=== PATIENT | male | born 1980 | race African-American/Black ===

== ENCOUNTER 2017-11-29 08:58 | Emergency (ER) | payer MEDICAID, OTHER ==
[~2017-11-29] VITALS: Ht 170.2 cm; Wt 75.0 kg
[2017-11-29 10:33] VITALS: BP 128/88
== END 2017-11-29 10:41 | disposition home or self-care (01) ==
LOC: ER 09:12
DX: S00.531A Contusion of lip, initial encounter (principal); S00.81XA Abrasion of other part of head, initial encounter; J45.909 Unspecified asthma, uncomplicated; V89.2XXA Person injured in unspecified motor-vehicle accident, traffic, initial encounter; Y93.89 Activity, other specified; Y92.89 Other specified places as the place of occurrence of the external cause; Y99.8 Other external cause status
CPT/HCPCS: 99283

== ENCOUNTER 2018-04-19 14:23 | Emergency (ER) | payer MEDICAID ==
[~2018-04-19] VITALS: Ht 188 cm; Wt 85.0 kg
[2018-04-19 16:41] VITALS: BP 117/63
[2018-04-19] MEDS ORDERED: KETOROLAC 60MG/2ML VIAL IM ONE (16:45)
== END 2018-04-19 17:30 | disposition home or self-care (01) ==
LOC: ER 16:04
DX: S52.614A Nondisplaced fracture of right ulna styloid process, initial encounter for closed fracture (principal); J45.909 Unspecified asthma, uncomplicated; W01.0XXA Fall on same level from slipping, tripping and stumbling without subsequent striking against object, initial encounter; Y93.89 Activity, other specified; Y92.9 Unspecified place or not applicable
CPT/HCPCS: 29125; 73090; 73110; 96372; 99284; J1885